=== PATIENT | female | born 1980 | race African-American/Black ===

== ENCOUNTER 2025-03-07 12:55 | Emergency (ER) | payer MEDICAID ==
[~2025-03-07] VITALS: Ht 170.2 cm; Wt 95.3 kg
--- NOTE | 2025-03-07 14:03 | Physician Documentation ---
History of Present Illness ~ Chief Complaint: Anxiety Stated Complaint: ANXIETY Time Seen by MD: 13:51 Primary Medical Doctor: None HPI 44-year-old female presents today after ingesting more edible marijuana then she normally does. She states she ingested 20 mg versus the normal 10 mg. States that has a different strain which has a induced anxiety.. Vitals are reassuring patient does have what appears to be dry mouth.. Denies any chest pain Day of Onset: Mar 07, 2025 Medication Reconciliation Allergies: Coded Allergies: Penicillins (Unverified Allergy, Severe, ANAPHYLAXIS, 03/07/25) Review of Systems All Other Systems at this time: Reviewed and Negative ROS As stated above in the HPI, otherwise all systems are reviewed and negative. Physical Exam Vital Signs: Temperature: 98.0, Source: Temporal, Heart Rate: 118, Respiratory Rate: 24, BP: 139/89, Pulse Oximetry: 100, Weight: 95.300 Oxygen Flow Rate: 0 Physical Exam General: Alert, no apparent distress. Respiratory: Lungs clear, no respiratory distress. Chest: No accessory muscle use. Cardiovascular:tachycardic , no murmurs. Neurologic: Oriented x4. Psychiatric: anxious appearing Skin: Normal color, warm and dry. No edema, no ecchymosis. Progress Results/Orders Results/Orders Vital Signs 03/07/25 12:57 Temp 98.0 Pulse 118 Resp 24 B/P (MAP) 139/89 Pulse Ox 100 O2 Flow Rate 0 Medical Decision Making Findings This 44-year-old female presents with a all the clinical indications for marijuana ingestion. Mildly tachycardic. Otherwise she presents as though she is intoxicated or under the influence of marijuana. Going to give her water and discharge her at this time. we will make sure she has a appropriate transportation Differential Dx:Considerations: Include: Alcohol abuse, Anxiety, Bipolar disorder, Conversion disorder, Depression, Encephaloathy, Homicidal, Panic disorder, Personality disorder, Schizophrenia, Substance abuse, Suicidal, Other Departure Disposition: 01 HOME / SELF CARE / HOMELESS Impression: Primary Impression: Anxiety Additional Impressions: Marijuana abuse Marijuana intoxication Condition: Stable Discharge Instructions: Panic Attack Referrals: NO PRIMARY CARE PROVIDER (PCP) Signature Scribe Signature: k Attestation: Scribed for Nathaniel Pastrana Np by Nathaniel Mackenzie NP . 03/07/25 14:06 NATHANIEL PASTRANA NP Mar 07, 2025 14:03
[2025-03-07 14:25] VITALS: BP 144/86; PULSE 97; RESP 20; TEMP 98; O2SAT 99
[2025-03-08] MEDS ORDERED: ALBU8HFA INH (22:39)
[2025-03-08] MEDS ORDERED: BUSP5TAB3 PO (22:39)
== END 2025-03-07 14:13 | disposition home or self-care (01) ==
LOC: ER 12:55
DX: F41.9 Anxiety disorder, unspecified (principal); F12.129 Cannabis abuse with intoxication, unspecified; Z88.0 Allergy status to penicillin; Y90.9 Presence of alcohol in blood, level not specified
CPT/HCPCS: 99283

== ENCOUNTER 2025-03-08 21:07 | Emergency (ER) | payer SELFPAY ==
[~2025-03-08] VITALS: Ht 170.2 cm; Wt 95.3 kg
[2025-03-08 21:30] VITALS: BP 156/88; PULSE 89; RESP 24; TEMP 96.3; O2SAT 100
[2025-03-08] MEDS ORDERED: ALBU8HFA INH (22:39)
[2025-03-08] MEDS ORDERED: BUSP5TAB3 PO (22:39)
--- NOTE | 2025-03-08 22:41 | Physician Documentation ---
HPI ~ General Chief Complaint: Medication Refill Stated Complaint: ANXIETY Time Seen by MD: 22:40 OK to notify your PCP?: Yes Primary Medical Doctor: None Source: patient Mode of Arrival: POV Exam Limitations: no limitations History of Present Illness HPI Comments 44-year-old female is new to the area and presents via EMS for panic attack from the [place]. She states that she has been out of her BuSpar for the past couple of weeks since moving here and she has yet to find a psychiatrist. She was taking BuSpar 5 mg at nighttime and states that her psychiatrist increased it to 10 mg but she never started taking that medication. Also requesting a prescription refill of her albuterol inhaler. Denies any HI or SI. Medication Reconciliation Allergies: Coded Allergies: Penicillins (Unverified Allergy, Severe, ANAPHYLAXIS, 03/07/25) Scheduled Buspirone Hcl* (Buspar*), 1 TAB PO DAILY Scheduled PRN albuterol inhaler (Pro-Air Inhaler), 2 PUFFS INH Q4HPRN PRN for wheezing Review of Systems All Other Systems at this time: Reviewed and Negative Physical Exam Physical Exam Vital Signs: RN Vital Signs have been reviewed: Yes, Temperature: 96.3, Source: Temporal, Heart Rate: 89, Respiratory Rate: 24, BP: 156/88, Pulse Oximetry: 100, Weight: 95.300 Pulse Oximetry Reflects: adequate oxygenation Physical Exam General: Alert, no distress. HEENT: No injection, moist mucous membranes. Neck: Full range of motion. Respiratory: No respiratory distress, equal chest rise and fall. Chest: No accessory muscle use. Cardiovascular: Regular rate and rhythm. Gastrointestinal: Nondistended. Extremities: Normal range of motion, no deformity. Neurologic: Alert and Oriented x4. Psychiatric: Anxious, pleasant. Skin: Normal color, warm and dry. Progress Results/Orders Reviewed/noted all lab results: Yes Results/Orders Completed Orders - DORITA PAYNE [employer] Lorazepam Tablet (Ativan Tablet) (03/08/25 22:40) Vital Signs 03/08/25 21:30 Temp 96.3 Pulse 89 Resp 24 B/P (MAP) 156/88 Pulse Ox 100 Medical Decision Making Findings 44-year-old female who is new to the areas requesting refill of her medication as well as states she is feeling pretty anxious today after running out. She is new to the area and [facility]. I prescribed her 7 day supply of BuSpar 5 mg once daily with instructions to follow up with [facility]. She appears very anxious and states that she has had Ativan in the past to help with her panic attack so I gave her a 1 time dose of Ativan while here in the department. She has been out of her albuterol inhaler as well so I sent that prescription to the pharmacy to. She denies any HI or SI and has no other medical complaints. Differential Dx:Considerations: Include: Adverse circumstances, Psychosocial, Medication non-compliance Additional Comment Suicidal ideation, homicidal ideation, paranoia, hallucinations. Departure Disposition: 01 HOME / SELF CARE / HOMELESS Impression: Primary Impression: Anxiety Condition: Stable Discharge Instructions: Medicine Refill at the Emergency Department Additional Instructions: Follow up with a [facility] to get back on your normal medications. I have prescribed you a 1 week supply of BuSpar and refilled your albuterol inhaler. Referrals: NO PRIMARY CARE PROVIDER (PCP) Prescriptions albuterol inhaler (Pro-Air Inhaler) 8.5 Gm Inhaler 2 PUFFS INH Q4HPRN PRN for wheezing for 30 Days, #18 GM Prov: DORITA PAYNE 03/08/25 Buspirone Hcl* (Buspar*) 5 Mg Tablet 1 TAB PO DAILY for 7 Days, #7 TAB Prov: DORITA PAYNE 03/08/25 Education Educated: Patient Educated regarding: diagnosis, treatment, prognosis, need for follow up Additional Comment Medical Screen Exam This patient recieved a medical screening examination. After reviewing the individual's medical complaints with presenting symptoms and performing an appropriate physical examination, it was determined that no immediate life- threatening emergency medical condition is present. This individual is also not a women having contractions. Signature Scribe Signature: . Attestation: Scribed for Dorita Payne by Dorita Mackenzie NP . 03/08/25 22:45 Parts of this note were created using [employer] voice recognition software program. While efforts were made to correct any mistakes made by this voice recognition software program, nonsensical phrases may remain in this note. In addition, there may be errors and syntax, grammar, content and spelling. DORITA PAYNE [facility] Mar 08, 2025 22:41
== END 2025-03-08 23:23 | disposition home or self-care (01) ==
LOC: ER 21:08
DX: F41.9 Anxiety disorder, unspecified (principal); Z76.0 Encounter for issue of repeat prescription; Z88.0 Allergy status to penicillin; Z79.899 Other long term (current) drug therapy
CPT/HCPCS: 99283